=== PATIENT | male | born 1965 | race Caucasian/White ===

== ENCOUNTER 2024-09-10 15:01 | Inpatient (IN) | payer OTHER, SELFPAY ==
[2024-09-10] VITALS (49 sets, daily range): BP systolic 107–197; BP diastolic 69–161
--- NOTE | 2024-09-10 13:50 | ED.GENMED ---
History of Present Illness
<Miguel Ángel Moy PA-C - Last Filed: 09/10/24 18:55>
General
Chief Complaint: Substance Abuse
Source: patient
Time Seen by Provider: 09/10/24 13:35
History of Present Illness
History of Present Illness:
59-year-old male with unknown past medical history presenting to the ER from [facility] where he was brought today as an inmate, notified staff that he had taken approximately 1500 mg of methamphetamine around 9 AM, was
brought to the [facility] where patient continued to decline prompting the [facility] to call EMS who transported the patient to the ER. Patient received approximately 150 mL of normal saline. Fingerstick glucose was 138. They administered 2 L of
oxygen via nasal cannula for comfort although they did note patient was not hypoxic and maintaining his airway although was extremely agitated and having constant muscle twitching. They did state that initially patient was responding to his name
however not able to answer questions. Patient is unable to provide any history at the time of arrival to the ER here.
Past History
<Miguel Ángel Moy PA-C - Last Filed: 09/10/24 18:55>
Past History
ED Past Medical History: Other (unknown)
ED Past Surgical History: None
Review of Systems
<Miguel Ángel Moy PA-C - Last Filed: 09/10/24 18:55>
Review of Systems
Unable to obtain full review of systems at this time due to: due to acuity
Other source history: ambulance crew
Phy Exam
<Miguel Ángel Moy PA-C - Last Filed: 09/10/24 18:55>
Physical Exam
Physical Exam:
GENERAL: Obtunded but maintaining airway, minimally withdraws from sternal rub/pain response
EYE: Pupils significantly dilated to approximately 7 mm, sluggish
NECK: Supple
ENT: o/p clr, dry mucous membranes
CARDIAC: Regular rate and rhythm .
LUNGS: Clear breath sounds bilaterally, no acute respiratory distress, no wheezes/rales/rhonchi
ABDOMEN: Soft, without focal tenderness, no r/g, no cvat
NEUROLOGICAL: Approximate 5 beat clonus to the bilateral lower extremities, constant choreiform like jerking movements to bilateral upper and lower extremity
SKIN: Warm and dry, skin intact.
MUSCULOSKELETAL: No edema, well perfused.
PSYCH: unable to assess
Scores
<Miguel Ángel Moy PA-C - Last Filed: 09/10/24 18:55>
Heart Failure Risk
Heart Failure Risk Score: Not Applicable
Heart Score for Chest Pain Patients
STEMI patient?: Not applicable
Withdrawal Assessment of Alcohol
Withdrawal Assessment Completed?: Not applicable
Course
<Miguel Ángel Moy PA-C - Last Filed: 09/10/24 18:55>
Orders/Labs/Results
Orders:
Orders
09/10/24 13:34
Electrocardiogram (*1) Urgent
Reason for Study: Other
Other Reason for Exam: meth use
Etomidate [Amidate] 40 mg .ROUTE .STK-MED ONE
Rocuronium Winfield [Rocuronium] 100 mg .ROUTE .STK-MED ONE
09/10/24 13:35
EKG- Treatment ONCE
09/10/24 13:37
0.9% Sodium Chloride 1000 ml [Nss] 1,000 ml IV BOLUS
09/10/24 13:45
Lorazepam [Ativan] 2 mg IV NOW STA
09/10/24 13:48
PTT Urgent
Prothrombin Time Urgent
09/10/24 13:49
Acetaminophen Urgent
Alcohol Urgent
CPK [Creatine Phosphokinase] Urgent
Complete Blood Count/With Diff Urgent
Comprehensive Metabolic Panel Urgent
Salicylate Urgent
Triglycerides Urgent
Comment: ADDON
Venous Blood Gas Urgent
%Oxygen/Room Air: RA
09/10/24 14:03
Etomidate [Amidate 20 mg] 20 mg .ROUTE .STK-MED ONE
09/10/24 14:13
Propofol 1,000,000 Mcg/100 ml [Diprivan] 1,000,000 mcg in 100 ml .ROUTE .STK-MED
Portable Chest Xray [CR Chest Portable - 1 View] Urgent
Comment:
Reason For Exam: post intubation
Reason Study Needs to be Portable: Patient Unstable
09/10/24 14:14
Etomidate [Amidate 20 mg] 20 mg IV NOW STA
Fentanyl Citrate/Pf [Sublimaze] 50 mcg IV [id number] PRN
Fentanyl Citrate/Pf [Sublimaze] 65 mcg IV NOW STA
09/10/24 14:15
FentaNYL 1,000 MCG/100 ML [Sublimaze] 1,000 mcg in 100 ml IV PER PROTOCOL
Indication:: Deep Sedation
Begin Infusion:: Now
Goal:: RASS </= -3, BIS 40-60, ventilator synchrony
Maximum dose in mcg/hr:: 300
Initial Dose in mcg/hr:: 60
Titration Instructions:: Titrate Q30 min until ventilator synchrony, RASS or BIS goal is met.
Titration Instructions:: If RASS >/= -2 or BIS > 60 or ventilator dyssynchrony:
Titration Instructions:: administer bolus dose and increase infusion by 25 mcg/hr.
Titration Instructions:: Administer analgesia bolus dose(s) & titrate analgesia prior to
Titration Instructions:: adjusting sedation.
Over-sedation Instructions:: if BIS < 40 and pt is synchronous with ventilator, decrease infusion by
Over-sedation Instructions:: 25 mcg/hr every 2 hours until BIS = 40-60.
Over-sedation Instructions:: Do not wean infusion to off if patient is receiving a continuous NMBA or
Over-sedation Instructions:: has received a bolus dose of NMBA within the past 3 hours.
Notify provider:: immediately if pt exhibits signs/symptoms of chest wall rigidity,
Notify provider:: hemodynamic instability, or agitation/pain despite maximum dosing.
Additional Instructions:: Patient MUST be mechanically ventilated.
Propofol 1,000,000 Mcg/100 ml [Diprivan] 1,000,000 mcg in 100 ml IV PER PROTOCOL
Indication:: Deep Sedation
Begin Infusion:: Now
Goal:: RASS -3 to -5 or BIS < 60 or ventilator synchrony
Maximum dose in mcg/kg/min:: 50
Initial Dose in mcg/kg/min:: 20
Titration Instructions:: Titrate by 5-10 mcg/kg/min every 5 minutes until RASS -3 to -5 or
Titration Instructions:: BIS < 60 or ventilator synchrony is met.
Titration Instructions:: Administer analgesia bolus dose(s) & titrate analgesia prior to
Titration Instructions:: adjusting sedation.
Taper Instructions:: If RASS is at or below goal for 4 consecutive hours decrease infusion by
Taper Instructions:: 5-10 mcg/kg/min every 2 hours. Do not wean infusion to off if patient is
Taper Instructions:: receiving a continuous NMBA or has received bolus NMBA with the past 3 hrs
Over-sedation Instructions:: If BIS < 40 and synchronous with ventilator decrease infusion by
Over-sedation Instructions:: 5-10 mcg/kg/min every 2 hour until BIS = 40-60.
Notify provider:: immediately if patient exhibits signs/symptoms of propofol-related
Notify provider:: infusion syndrome.
Additional Instructions:: Patient MUST be mechanically ventilated and MUST receive analgesia.
09/10/24 14:18
FentaNYL 1,000 MCG/100 ML [Sublimaze] 1,000 mcg in 100 ml .ROUTE .STK-MED
09/10/24 14:35
Admit/Transfer Patient As Directed
Co-Sign Provider:
Level of Care: Inpatient admission
Assign to:: ICU
Physician / Group: Serafin Wagner
Diagnosis: methamphetamine overdose
Reason for Hospitalization: methamphetamine overdose
Expected length of stay greater than two midnights?: Yes
ELOS- Estimated Length of Stay in days: 3
I certify the patient meets the requirements for IP care: Yes
PRN Pain Medication Management As Directed
May give lesser potent ordered pain med per pt: Yes
preference::
Protocol:: Medication orders for pain may be administered in a
manner that supports deferring to patient preference
when the pt is:
- Requesting an ordered lesser potent pain medication.
Least to most potent pain medications are defined
as: acetaminophen < NSAID < tramadol < opioids
(morphine, oxycodone, hydromorphone).
- Requesting a lesser dose of the same medication IF
ORDERED.
- Requesting a less intrusive route of administration
if both routes are prescribed by the provider (PO <
IV).
09/10/24 14:39
Fentanyl, Urine Urgent
Urinalysis Reflex To Culture Urgent
Date Specimen was Collected: 09/10/24
Time Specimen was Collected: 14:34
Urine Drug Abuse Screen Urgent
Date Specimen was Collected: 09/10/24
Time Specimen was Collected: 14:34
Urine Microscopic Reflex Cult Urgent
09/10/24 Dinner
NPO
Allow oral meds: No
Allow clear liquids: No
09/10/24 16:29
Heparin 5,000 units SC Q8
09/10/24 16:29
Electrocardiogram (*1) Urgent
Reason for Study: Other
Other Reason for Exam: methamphetamine overdose
Pet Technologist Consult Urgent
Consulting Provider: Katelynn Mariscal
Was physician already notified: Yes
Reason for consult: ICU team notified by ED staff
MRSA Screen Routine
JESSIKA Source: Nose
Specimen Description:
Tong Catheter [Catheter- Indwelling] As Directed
Reason for insertion: I&O's Critical Care
Assess insertion reason daily.Remove if no longer applicable: Yes
Weight As Directed
Frequency: Daily
Pulse Ox/cont/shift [RESP] Urgent
Quantity: 1
Ventilator Initial Settings [RESP] Routine
DX Deep Vein Thrombosis Video Routine
09/10/24 17:15
Dexmedetomidine 400 Mcg/100 ml [Precedex] 400 mcg in 100 ml IV PER PROTOCOL
Indication:: Light Sedation
Goal:: RASS 0 to -2
Maximum dose in mcg/kg/hr:: 1.5
Initial dose in mcg/kg/hr:: 0.1
Titration Instructions:: Titrate by 0.1-0.2 mcg/kg/hr every 30 minutes until RASS 0 to -2 achieved.
Titration Instructions:: start and titrate for increased agitation
Taper Instructions:: If RASS is at or below goal for 4 consecutive hours, decrease infusion by
Taper Instructions:: 0.2 mcg/kg/hr every 2 hours to off.
Over-sedation Instructions:: If CPOT 0-2 (at goal) AND RASS -3 to -5 (below goal) decrease sedative by
Over-sedation Instructions:: 50% first. If pain score remains at goal and RASS remains below goal in
Over-sedation Instructions:: 1 hour, decrease opioid infusion by 50%.
Notify provider:: for sustained HR < 50 bpm or SBP < 90 mmHg
09/11/24 08:00
Polyethylene Glycol Powder [Miralax] 17 grams TUBE DAILY
09/13/24 06:00
Triglycerides Q3D
Comment: every 72 hours while patient is on propofol
09/16/24 06:00
Triglycerides Q3D
Comment: every 72 hours while patient is on propofol
09/19/24 06:00
Triglycerides Q3D
Comment: every 72 hours while patient is on propofol
Abnormal Lab Results
09/10/24 09/10/24
13:49 14:39
RBC 4.53 L 10^6/uL
(4.70-6.10)
MCHC 32.5 L g/dL
(33.0-37.0)
Absolute Neuts (auto) 8.5 H 10^3/uL
(1.4-6.5)
Absolute Lymphs (auto) 1.1 L 10^3/uL
(1.2-3.4)
Neutrophils % 83.4 H %
(42.2-75.2)
Lymphocytes % 10.3 L %
(20.5-51.1)
VBG pCO2 49 H mmHg
(35-48)
VBG pO2 83 H mmHg
(30-50)
VBG HCO3 27.7 H mmol/L
(22-27)
BUN 21 H mg/dl
(9-20)
Glucose 156 H mg/dl
(70-99)
Ur Occult Blood Reflex 1+ A
(Negative)
Urine RBC 7-10 A /HPF
(0-2)
Urine Albumin (Reflex) 1+ A
(Neg - Trace)
Salicylates < 1.0 L mg/dl
(2.0-20.0)
Ur Buprenorphine Positive H
(Negative)
Urine Methadone Screen Positive H
(Negative)
Urine Fentanyl Screen Positive H
(Negative)
Acetaminophen < 10 L ug/ml
(10-30)
Ur Amphetamines Screen Positive H
(Negative)
U Methamphetamines Scrn Positive H
(Negative)
09/10/24 13:49
09/10/24 13:49
Vital Signs
Initial and Last Documented VS:
Initial Vital Signs
Pulse Resp BP Pulse Ox
83 16 142/109 95
09/10/24 13:37 09/10/24 13:37 09/10/24 13:37 09/10/24 13:37
Last Documented Vital Signs
Temp Pulse Resp BP Pulse Ox
96.7 F L 90 16 136/87 100
09/10/24 17:08 09/10/24 18:30 09/10/24 18:30 09/10/24 18:15 09/10/24 18:00
<Dave Velarde Chirstina, DO - Last Filed: 09/10/24 14:31>
Orders/Labs/Results
Orders:
Orders
09/10/24 13:34
Electrocardiogram (*1) Urgent
Reason for Study: Other
Other Reason for Exam: meth use
Etomidate [Amidate] 40 mg .ROUTE .STK-MED ONE
Rocuronium Winfield [Rocuronium] 100 mg .ROUTE .STK-MED ONE
09/10/24 13:35
EKG- Treatment ONCE
09/10/24 13:37
0.9% Sodium Chloride 1000 ml [Nss] 1,000 ml IV BOLUS
09/10/24 13:45
Lorazepam [Ativan] 2 mg IV NOW STA
09/10/24 13:48
PTT Urgent
Prothrombin Time Urgent
09/10/24 13:49
Acetaminophen Urgent
Alcohol Urgent
CPK [Creatine Phosphokinase] Urgent
Complete Blood Count/With Diff Urgent
Comprehensive Metabolic Panel Urgent
Salicylate Urgent
Triglycerides Urgent
Comment: ADDON
Venous Blood Gas Urgent
%Oxygen/Room Air: RA
09/10/24 14:03
Etomidate [Amidate 20 mg] 20 mg .ROUTE .STK-MED ONE
09/10/24 14:13
Propofol 1,000,000 Mcg/100 ml [Diprivan] 1,000,000 mcg in 100 ml .ROUTE .STK-MED
Portable Chest Xray [CR Chest Portable - 1 View] Urgent
Comment:
Reason For Exam: post intubation
Reason Study Needs to be Portable: Patient Unstable
09/10/24 14:14
Etomidate [Amidate 20 mg] 20 mg IV NOW STA
Fentanyl Citrate/Pf [Sublimaze] 50 mcg IV [id number] PRN
Fentanyl Citrate/Pf [Sublimaze] 65 mcg IV NOW STA
09/10/24 14:15
FentaNYL 1,000 MCG/100 ML [Sublimaze] 1,000 mcg in 100 ml IV PER PROTOCOL
Indication:: Deep Sedation
Begin Infusion:: Now
Goal:: RASS </= -3, BIS 40-60, ventilator synchrony
Maximum dose in mcg/hr:: 300
Initial Dose in mcg/hr:: 60
Titration Instructions:: Titrate Q30 min until ventilator synchrony, RASS or BIS goal is met.
Titration Instructions:: If RASS >/= -2 or BIS > 60 or ventilator dyssynchrony:
Titration Instructions:: administer bolus dose and increase infusion by 25 mcg/hr.
Titration Instructions:: Administer analgesia bolus dose(s) & titrate analgesia prior to
Titration Instructions:: adjusting sedation.
Over-sedation Instructions:: if BIS < 40 and pt is synchronous with ventilator, decrease infusion by
Over-sedation Instructions:: 25 mcg/hr every 2 hours until BIS = 40-60.
Over-sedation Instructions:: Do not wean infusion to off if patient is receiving a continuous NMBA or
Over-sedation Instructions:: has received a bolus dose of NMBA within the past 3 hours.
Notify provider:: immediately if pt exhibits signs/symptoms of chest wall rigidity,
Notify provider:: hemodynamic instability, or agitation/pain despite maximum dosing.
Additional Instructions:: Patient MUST be mechanically ventilated.
Propofol 1,000,000 Mcg/100 ml [Diprivan] 1,000,000 mcg in 100 ml IV PER PROTOCOL
Indication:: Deep Sedation
Begin Infusion:: Now
Goal:: RASS -3 to -5 or BIS < 60 or ventilator synchrony
Maximum dose in mcg/kg/min:: 50
Initial Dose in mcg/kg/min:: 20
Titration Instructions:: Titrate by 5-10 mcg/kg/min every 5 minutes until RASS -3 to -5 or
Titration Instructions:: BIS < 60 or ventilator synchrony is met.
Titration Instructions:: Administer analgesia bolus dose(s) & titrate analgesia prior to
Titration Instructions:: adjusting sedation.
Taper Instructions:: If RASS is at or below goal for 4 consecutive hours decrease infusion by
Taper Instructions:: 5-10 mcg/kg/min every 2 hours. Do not wean infusion to off if patient is
Taper Instructions:: receiving a continuous NMBA or has received bolus NMBA with the past 3 hrs
Over-sedation Instructions:: If BIS < 40 and synchronous with ventilator decrease infusion by
Over-sedation Instructions:: 5-10 mcg/kg/min every 2 hour until BIS = 40-60.
Notify provider:: immediately if patient exhibits signs/symptoms of propofol-related
Notify provider:: infusion syndrome.
Additional Instructions:: Patient MUST be mechanically ventilated and MUST receive analgesia.
09/10/24 14:18
FentaNYL 1,000 MCG/100 ML [Sublimaze] 1,000 mcg in 100 ml .ROUTE .STK-MED
09/10/24 14:35
Admit/Transfer Patient As Directed
Co-Sign Provider:
Level of Care: Inpatient admission
Assign to:: ICU
Physician / Group: Serafin Wagner
Diagnosis: methamphetamine overdose
Reason for Hospitalization: methamphetamine overdose
Expected length of stay greater than two midnights?: Yes
ELOS- Estimated Length of Stay in days: 3
I certify the patient meets the requirements for IP care: Yes
PRN Pain Medication Management As Directed
May give lesser potent ordered pain med per pt: Yes
preference::
Protocol:: Medication orders for pain may be administered in a
manner that supports deferring to patient preference
when the pt is:
- Requesting an ordered lesser potent pain medication.
Least to most potent pain medications are defined
as: acetaminophen < NSAID < tramadol < opioids
(morphine, oxycodone, hydromorphone).
- Requesting a lesser dose of the same medication IF
ORDERED.
- Requesting a less intrusive route of administration
if both routes are prescribed by the provider (PO <
IV).
09/10/24 14:39
Fentanyl, Urine Urgent
Urinalysis Reflex To Culture Urgent
Date Specimen was Collected: 09/10/24
Time Specimen was Collected: 14:34
Urine Drug Abuse Screen Urgent
Date Specimen was Collected: 09/10/24
Time Specimen was Collected: 14:34
Urine Microscopic Reflex Cult Urgent
09/10/24 Dinner
NPO
Allow oral meds: No
Allow clear liquids: No
09/10/24 16:29
Heparin 5,000 units SC Q8
09/10/24 16:29
Electrocardiogram (*1) Urgent
Reason for Study: Other
Other Reason for Exam: methamphetamine overdose
Pet Technologist Consult Urgent
Consulting Provider: Katelynn Mariscal
Was physician already notified: Yes
Reason for consult: ICU team notified by ED staff
MRSA Screen Routine
JESSIKA Source: Nose
Specimen Description:
Tong Catheter [Catheter- Indwelling] As Directed
Reason for insertion: I&O's Critical Care
Assess insertion reason daily.Remove if no longer applicable: Yes
Weight As Directed
Frequency: Daily
Pulse Ox/cont/shift [RESP] Urgent
Quantity: 1
Ventilator Initial Settings [RESP] Routine
DX Deep Vein Thrombosis Video Routine
09/10/24 17:15
Dexmedetomidine 400 Mcg/100 ml [Precedex] 400 mcg in 100 ml IV PER PROTOCOL
Indication:: Light Sedation
Goal:: RASS 0 to -2
Maximum dose in mcg/kg/hr:: 1.5
Initial dose in mcg/kg/hr:: 0.1
Titration Instructions:: Titrate by 0.1-0.2 mcg/kg/hr every 30 minutes until RASS 0 to -2 achieved.
Titration Instructions:: start and titrate for increased agitation
Taper Instructions:: If RASS is at or below goal for 4 consecutive hours, decrease infusion by
Taper Instructions:: 0.2 mcg/kg/hr every 2 hours to off.
Over-sedation Instructions:: If CPOT 0-2 (at goal) AND RASS -3 to -5 (below goal) decrease sedative by
Over-sedation Instructions:: 50% first. If pain score remains at goal and RASS remains below goal in
Over-sedation Instructions:: 1 hour, decrease opioid infusion by 50%.
Notify provider:: for sustained HR < 50 bpm or SBP < 90 mmHg
09/11/24 08:00
Polyethylene Glycol Powder [Miralax] 17 grams TUBE DAILY
09/13/24 06:00
Triglycerides Q3D
Comment: every 72 hours while patient is on propofol
09/16/24 06:00
Triglycerides Q3D
Comment: every 72 hours while patient is on propofol
09/19/24 06:00
Triglycerides Q3D
Comment: every 72 hours while patient is on propofol
Abnormal Lab Results
09/10/24 09/10/24
13:49 14:39
RBC 4.53 L 10^6/uL
(4.70-6.10)
MCHC 32.5 L g/dL
(33.0-37.0)
Absolute Neuts (auto) 8.5 H 10^3/uL
(1.4-6.5)
Absolute Lymphs (auto) 1.1 L 10^3/uL
(1.2-3.4)
Neutrophils % 83.4 H %
(42.2-75.2)
Lymphocytes % 10.3 L %
(20.5-51.1)
VBG pCO2 49 H mmHg
(35-48)
VBG pO2 83 H mmHg
(30-50)
VBG HCO3 27.7 H mmol/L
(22-27)
BUN 21 H mg/dl
(9-20)
Glucose 156 H mg/dl
(70-99)
Ur Occult Blood Reflex 1+ A
(Negative)
Urine RBC 7-10 A /HPF
(0-2)
Urine Albumin (Reflex) 1+ A
(Neg - Trace)
Salicylates < 1.0 L mg/dl
(2.0-20.0)
Ur Buprenorphine Positive H
(Negative)
Urine Methadone Screen Positive H
(Negative)
Urine Fentanyl Screen Positive H
(Negative)
Acetaminophen < 10 L ug/ml
(10-30)
Ur Amphetamines Screen Positive H
(Negative)
U Methamphetamines Scrn Positive H
(Negative)
09/10/24 13:49
09/10/24 13:49
Vital Signs
Initial and Last Documented VS:
Initial Vital Signs
Pulse Resp BP Pulse Ox
83 16 142/109 95
09/10/24 13:37 09/10/24 13:37 09/10/24 13:37 09/10/24 13:37
Last Documented Vital Signs
Temp Pulse Resp BP Pulse Ox
96.7 F L 90 16 136/87 100
09/10/24 17:08 09/10/24 18:30 09/10/24 18:30 09/10/24 18:15 09/10/24 18:00
Procedures
<Miguel Ángel Moy PA-C - Last Filed: 09/10/24 18:55>
Intubations
Procedure completed by: Chinmay/Christina
Method of Intubation: glidescope
Tube size (cm): 8.0
Placement confirmed by: CXR, capnography and direct visualization
Breath sounds after intubation: equal
Intubation complications: no complications
<Miguel Ángel Moy PA-C - Last Filed: 09/10/24 18:55>
MDM/Problems Addressed
Differential Diagnosis Includes:
Methamphetamine overdose, potential for other substance overdose, electrolyte derangement, less concern for acute infectious etiology
MDM/Problems Addressed:
59-year-old male presenting to the ER from [facility] for reported overdose where patient took approximately 1500 mg of methamphetamine approximately 4-1/2 hours prior to arrival. Patient is significantly agitated, minimally
responsive, appears to have significant neurologic findings of choreiform like movements and clonus. Toxicology workup initiated. Call placed to [facility] toxicology for further medication recommendation. 2 mg of Ativan ordered for
symptomatic relief. Will continue with normal saline bolus. Closely monitoring patient for any signs of airway compromise and will have low threshold to intubate if need be. Planning for admission
Chronic conditions affecting care: Psychiatric illness (Substance use)
<Miguel Ángel Moy PA-C - Last Filed: 09/10/24 18:55>
*Radiology
Radiology exam reviewed: preliminary read by ED provider (Proper placement of the ET tube)
*Pulse Oximetry
Patient hypoxic: no
*EKG
Comparison EKG: no comparison EKG present
Heart Rate: 83
Rate: normal
Rhythm: sinus
Thorpe: normal axis
Ischemia: no ischemia
*Sorter Operator Interpretation
Rate: normal
Rhythm: sinus
*Critical Care Note
Total Time (30-74mins, 75-104mins- exclusive of procedures): 35
comment:
Critical care statement: A total of 45 minutes of critical care time was provided for this patient. This includes management of unstable vital signs, evaluation of the patient at bedside, reviewing the patient's pertinent medical records, discussion
with consultants, review of old EKGs and review of pertinent medical records. This time with separate from time utilized to perform the aforementioned documented procedures
<Dave Vasquez DO - Last Filed: 09/10/24 14:31>
*Critical Care Note
Total Time (30-74mins, 75-104mins- exclusive of procedures): 40min
comment:
I evaluated the patient at bedside. The patient is critically ill in appearance. He is hypertensive. He is minimally responsive. The patient was intubated (see note elsewhere). We communicated emergently with color worker at [facility] and I
also discussed with oil expeller here at [place]. The patient required multiple reassessments.
<Miguel Ángel Moy PA-C - Last Filed: 09/10/24 18:55>
Comment
Comment:
2 PM-patient started to have increased agitation, hypoxia and grunting. Patient not maintaining airway. Decision made to intubate patient to protect airway.
Patient Management
Social determinants of health affecting care: Substance abuse
Discussion with other providers: Hospitalist and Cover Seamer
Escalation/DeEscalation of care consider admission/obs:
Case discussed with [facility] color worker who agrees with workup plan and treatment. No further recommendations at this time other than if symptoms seem to worsen despite current medications Precedex could be of potential benefit. Hospitalist
team notified. Dr. Vasquez had spoken with oil expeller team about the case already.
ED Attending Note
<Miguel Ángel Moy PA-C - Last Filed: 09/10/24 18:55>
-
Portions of this chart may have been created with voice recognition software.� Occasional wrong word or��sound alike� substitutions may have occurred due to the inherent limitations of voice recognition software.
<Dave Vasquez DO - Last Filed: 09/10/24 14:31>
ED Attending Note
Patient seen and examined by attending physician: Yes
I performed the substantive portion of visit, reviewed & personally made and approve the management plan that is documented in note by myself or DEBO.: Yes
ED Attending Note:
I evaluated the patient at bedside. The patient had choreoathetoid movements intermittently, significant clonus, and was minimally responsive. He was given 2 mg of IV Ativan given the abnormal neurologic presentation. He did have trouble
protecting his airway and decision was made to intubate him emergently. This was done without difficulty. I also communicated with Dr. Mariscal who recommends propofol.
Discharge Plan
Departure
Patient Disposition: Admit
Date of Disposition: 09/10/24
Time of Disposition: 14:21
Presentation/result/management discussed w/ accepting MD/DO: Hospitalist
Discharge Problem:
Overdose of methamphetamine
Interventions
Interventions:
*Risk Screen - Suicide Last Done: 09/10/24 13:42
*General Assessment Last Done: 09/10/24 13:42
*Neglect/Abuse Screening Last Done: 09/10/24 13:42
ED- Fall Risk Assessment Last Done: 09/10/24 15:36
*ED COVID-19 Vaccine History Last Done: 09/10/24 13:42
*Nursing Disposition Last Done: 09/10/24 15:36
ED-Psychological Assessment Last Done: 09/10/24 13:42
Discharge Date and Time
Discharge Date/Time: 09/10/24 16:39
[2024-09-10] MEDS: NSS 1000 IV (13:51)
[2024-09-10] MEDS: ATIVAN 2 MG IV (13:51)
[2024-09-10 14:07] LABS: Venous Blood Gas B.E. 1.4 mmol/L (-4 to +4); Venous Blood Gas HCO3 27.7 mmol/L (22-27); Venous Blood Gas O2 Sat % 98.6 %; Venous Blood Gas pCO2 49 mmHg (35-48); Venous Blood Gas pH 7.36 (7.32-7.43); Venous Blood Gas pO2 83 mmHg (30-50)
[2024-09-10 14:08] LABS: % Basophils 0.7 % (0-2); % Eosinophils 1.6 % (0-6); % Immature Granulocytes 0.4 % (0-0.5); % Lymphocytes 10.3 % (20.5-51.1); % Monocytes 3.6 % (1.7-9.3); % Neutrophils 83.4 % (42.2-75.2); Absolute Basophils 0.1 10^3/uL (0-0.2); Absolute Eosinophils 0.2 10^3/uL (0-0.7); Absolute Lymphocytes 1.1 10^3/uL (1.2-3.4); Absolute Monocytes 0.4 10^3/uL (0.1-0.6); Absolute Neutrophils 8.5 10^3/uL (1.4-6.5); Hematocrit 42.5 % (39.0-52.0); Hemoglobin 13.8 g/dL (13.0-18.0); Mean Corp Hgb Conc. 32.5 g/dL (33.0-37.0); Mean Corpuscular Hgb 30.5 pg (27.0-31.0); Mean Corpuscular Volume 93.8 fL (80.0-94.0); Mean Platelet Volume 9.3 fL (7.4-10.4); Nucleated Red Blood Cells % 0 % (-); Platelet Count 283 10^3/uL (130-400); Red Blood Cell Count 4.53 10^6/uL (4.70-6.10); Red Cell Dist. Width 12.6 % (11.5-14.5); White Blood Cell Count 10.2 10^3/uL (4.8-10.8)
[2024-09-10 14:09] LABS: Venous Blood Gas O2 Therapy RA
[2024-09-10 14:14] LABS: INR 0.96; PT 13.3 Sec (11.4-14.6)
[2024-09-10 14:15] LABS: APTT 23.9 Sec (23.4-35.0)
[2024-09-10 14:21] LABS: ALT (SGPT) 25 U/L (0-50); AST (SGOT) 21 U/L (17-59); Acetaminophen < 10 ug/ml (10-30); Albumin 4.2 g/dl (3.5-5.0); Alkaline Phosphatase 100 U/L (38-126); Blood Urea Nitrogen 21 mg/dl (9-20); Calcium 8.7 mg/dl (8.4-10.2); Carbon Dioxide 27 mmol/L (22-30); Chloride 107 mmol/L (98-107); Creatine Phosphokinase 98 U/L (55-170); Glucose 156 mg/dl (70-99); Potassium 4.2 mmol/L (3.5-5.1); Salicylate < 1.0 mg/dl (2.0-20.0); Sodium 143 mmol/L (135-145); Total Bilirubin 0.3 mg/dl (0.2-1.3); Total Protein 7.1 g/dl (6.3-8.2); eGFR > 60.00
[2024-09-10 14:23] LABS: Alcohol None Detected
[2024-09-10] MEDS: AMIDATE 20 MG IV (14:25)
[2024-09-10] MEDS: DIPRIVAN 100 IV (14:26)
[2024-09-10] MEDS: SUBLIMAZE 65 MCG IV (14:27)
[2024-09-10] MEDS: SUBLIMAZE 100 IV (14:31)
--- NOTE | 2024-09-10 14:36 | HPS.HSE ---
Family Physician
-
Family Physician: Facility [employer] [facility]
Chief Complaint
-
methamphetamine OD
History of Present Illness
HPI
59M inmate from [facility] seen at ER
- [facility]
- he took approximately 1500 mg of methamphetamine around 9 AM
- he was taken to the [facility] where patient continued to decline prompting the [facility] to call EMS who transported the patient to the ER.
- Patient received approximately 150 mL of normal saline.
- Fingerstick glucose was 138.
Per EMS:
- They administered 2 L of oxygen via nasal cannula for comfort although they did note patient was not hypoxic and maintaining his airway although was extremely agitated and having constant muscle twitching. They did state that initially patient
was responding to his name however not able to answer questions.
Per correction officers:
Under correction custody for day 1
Patient was picked up today by police for agitation
Over the the time escalading agitation
Medical History
Past Medical History
Past Medical History: Reports Other (unknown )
Past Surgical History: Reports Other (unknown )
Social History
Unable to obtain full social history at this time due to: Patient Intubation
Living: Senior Living
Family History
Family History: Unable to Obtain
Allergies / Home Medications
Allergies reflects when Allergies were last updated in [facility].
Home Medications with original date entered in [facility]
Allergy/Medication List:
Allergies
Allergy/AdvReac Type Severity Reaction Status Date / Time
No Allergy Information Allergy Unverified 09/10/24 13:36
Available
Review of Systems
-
Unable to obtain full review of systems at this time due to: Patient Intubation
Physical Exam
Vital Signs
Vital Signs
Pulse Resp BP Pulse Ox
83 23 142/109 95
09/10/24 13:45 09/10/24 13:45 09/10/24 13:37 09/10/24 13:45
Physical Exam
General: Intubated and Other (Obtunded but maintaining airway, minimally withdraws from sternal rub/pain response)
HEENT: PERRLA (sluggish pupils significantly dilated to approximately 7 mm, dry OM)
Cardiac: S1/S2 and Regular Rhythm
Breast: Deferred by me
GI: Soft, Non Tender and Non Distended
Genito-urinary: Deferred by me
Musculoskeletal: No Edema
Skin: Warm and Dry; No Rash
Neuro: Sedated
Laboratory Results
-
09/10/24 13:49
09/10/24 13:49
Laboratory Results
PT 13.3 Sec (11.4-14.6) 09/10/24 13:48
INR 0.96 09/10/24 13:48
APTT 23.9 Sec (23.4-35.0) 09/10/24 13:48
Total Bilirubin 0.3 mg/dl (0.2-1.3) 09/10/24 13:49
AST 21 U/L (17-59) 09/10/24 13:49
ALT 25 U/L (0-50) 09/10/24 13:49
Alkaline Phosphatase 100 U/L (38-126) 09/10/24 13:49
Data Reviewed
-
Lab Data: Labs Reviewed by me
Impression/Plan
-
Reviewed VS: unremarkable
PE
Intubated
Gen: Obtunded but maintaining airway, minimally withdraws from sternal rub/pain response
HEENT: sluggish pupils significantly dilated to approximately 7 mm, dry OM
Neck: supple
Lungs:
Cor: symmetric AE
Abdomen: benign exam
RESIDENTIAL SALES ASSOCIATE: 5 beat clonus to the bilateral lower extremities, constant choreiform like jerking movements to bilateral upper and lower extremity
MS:no edema
Derm
Psych:limitd due to intubated patient
Data
Nl CBC
Unremarkable CMP
VB.36/ pCO2 49/ pO283
Undetectable Salicylate , Acetaminophen and ETOH
NO PRIOR hospitalist admission:
ASSESSMENT & PLAN
Acute VDRF due to agitation and obtundation
Currently sedated
Methamphetamine overdose
Undetectable Salicylate , Acetaminophen and ETOH
- cont. Vent
- supportive care with IVF, NGT
- Precedex gtt as needed
- Per [place] tox: no further recs for [facility] other than precedex as needed if starts to have any further withdrawal symptoms
DVT Px: SQH
Full code
ICU
Total Critical Care Time__40___ minutes.
I was immediately available to the patient and staff. I personally examined, reviewed labs, diagnostic images/reports, interpretations, treatment plans, discussed patient care with other providers and family or caregivers (if patient is unable to
make decisions), entered orders as appropriate and documented the medical record.
--- NOTE | 2024-09-10 14:42 | EDRN ---
Addendum entered by Rehana Clark RN 09/10/24 14:45:
16 Fr NGT in right nare to suction
Original Note:
1400: pt became hypoxic, at bedside
1410: Pt bagged, RT at bedside; pt administered Etomidate 20 + Roccuronium 60
1412: intubated with 8.0 tube, 24 at lip, + color change.
Pt's rectal temp 96, warm blankets applied, Tong cath inserted, urine sent to lab.
Propofol and Fentanyl drips ongoing.
--- NOTE | 2024-09-10 14:59 | PHANOTE ---
med rec note- patient coming from [facility] as a new inmate, called over to confirm medication, [facility] did not start him on anything been new to snf, patient has no ecw, no pharmacy records pdmp was last used for patient january of 2024. nurse at [facility] did
mention that the patient stated he does not take anything before patient got worst
[2024-09-10 15:10] LABS: Urine Albumin 1+ (Neg - Trace); Urine Bilirubin Negative (Negative); Urine Character Clear (Clear); Urine Color Yellow; Urine Glucose Negative (Negative); Urine Ketone Negative (Negative); Urine Leukocyte Negative (Negative); Urine Nitrite Negative (Negative); Urine Occult Blood 1+ (Negative); Urine Specific Gravity 1.025 (<1.030); Urine Urobilinogen Negative (Neg - 1+)
[2024-09-10 15:20] LABS: Amphetamines Positive (Negative); Barbiturates Negative (Negative); Benzodiazepines Negative (Negative); Buprenorphine Positive (Negative); Cocaine Negative (Negative); Marijuana Negative (Negative); Methadone Positive (Negative); Methamphetamines Positive (Negative); Opiates Negative (Negative); Phencyclidine Negative (Negative); Tricyclic Antidepressants Negative (Negative)
[2024-09-10 15:49] LABS: Urine Squamous Cell 0-2 /LPF (Few); Urine White Cell 0-2 /HPF (0-5)
[2024-09-10 15:55] LABS: Fentanyl, Urine Positive (Negative)
--- NOTE | 2024-09-10 17:09 | CON.INTV ---
Consultation
Consultation Request
Date/Time Consultation Requested: 09/10/24
Date/Time Consultation Performed: 09/10/24
Performing Provider: Loida
Reason for Consultation: ICU
Medical History
-
History of Present Illness:
Patient is a 59-year-old male with previous history of drug use presenting from [facility] for unresponsiveness. He reportedly had taken 1500 mg of methamphetamine around 9 AM day of admission. He was taken to the [facility]
where patient continued to decline prompting EMS transport to the ER. Due to mental status changes and extreme agitation, patient was intubated for airway protection. He remains unresponsive. UDS completed following fentanyl delivery in the ER,
but positive for buprenorphine, methadone, fentanyl, amphetamines, methamphetamines. Admitted to ICU for further management.
Past Medical History
Past Medical History: Other
Family History
Family History: Unable to Obtain
Allergies / Home Medications
Allergies
Allergy/AdvReac Type Severity Reaction Status Date / Time
No Allergy Information Allergy Unverified 09/10/24 13:36
Available
Home Medications
�Medication �Instructions �Recorded �Confirmed �Last Taken �Type
No Meds [No Current Medications] 09/10/24 09/10/24 Unknown History
Review of Systems
-
Unable to Obtain full review of systems at this time due to: Patient Intubation
Vitals / Labs / Diagnostic Testing
Vital Signs
Temp Pulse Resp BP Pulse Ox
96.7 F L 80 14 151/95 99
09/10/24 17:08 09/10/24 16:10 09/10/24 16:10 09/10/24 16:10 09/10/24 17:04
Lab Data
09/10/24 13:49
09/10/24 13:49
Laboratory Results
09/10/24
13:48
PT 13.3
INR 0.96
APTT 23.9
Diagnostic Testing:
Physical Exam
-
HEENT: Normocephalic, Anicteric and Moist Mucous Membranes
Cardiovascular: S1/S2 and Regular Rhythm
Respiratory: Clear and Non-Labored Respirations
GI: Soft, Distended and Non Tender
Neurology: Other (unresponsive, periodic twitching noted)
Skin: Warm, Dry and Good Color
General: Comfortable and Other (NAD)
Assessment
-
Patient is a 59-year-old male with previous history of drug use presenting from [facility] for unresponsiveness. He reportedly had taken 1500 mg of methamphetamine around 9 AM day of admission. He was taken to the [facility]
where patient continued to decline prompting EMS transport to the ER. Due to mental status changes and extreme agitation, patient was intubated for airway protection. He remains unresponsive. UDS completed following fentanyl delivery in the ER,
but positive for buprenorphine, methadone, fentanyl, amphetamines, methamphetamines. Admitted to ICU for further management.
Unresponsiveness s/p intubation for airway protection
Methamphetamine overdose suspected
Myoclonic jerking
Hyperglycemia
Hypertensive urgency
History of drug use
Incarcerated status
Plan
Currently unresponsive, with periodic twitching
Will obtain head CT
Stop sedation and observe off
If not improving, may consider neurologic consultation
Pain/sedation: Ativan as needed, Precedex if needed
RASS goals: 0
Hemodynamically stable, not requiring pressors.
Cardiac history reviewed--none
No prior echo for review
Blood pressure is noted to be elevated, will add hydralazine IV as needed
Monitor on telemetry
Intubated for airway protection
Prior history of lung disease: none
Supplemental O2 as indicated to maintain sats > 89%
CXR/CT reviewed indicating no acute findings
Will SBT pending mental status
NPO, resume diet when able
NGT to suction, output suggesting possible ileus, may consider abd imaging
Painter Helper recommendations
Aspiration precautions, HOB > 30 degrees
Speech therapy eval can be considered if at elevated risk
GI prophylaxis if indicated for mechanical ventilation >48 hours, prior history of GERD, stress ulcer formation in the critically ill
Creat at baseline, no history of renal disease
Void trials
Follow urine output, critical I/Os
No signs/symptoms suspicious for infectious etiology at this time
Observe off antibiotics for now
Follow fever trend, WBC count
CBC stable, no signs of bleeding or coagulopathy.
DVT prophylaxis as assessed based on risk, including mechanical SCDs
Can transfuse if indicated for Hb <7, plt < 10
No prior h/o diabetes or thyroid disease
Monitor accuchecks PRN/SS coverage if needed
We will follow
Diagnostic Data
Chest X-Ray: 09/10/24- No acute disease of the chest. Lines and tubes as described above.
CT Scan: HCT pending
Echo:
PFT's:
Reports and relevant images were personally reviewed.
Critical Care time 61 mins -- The patient is admitted for acute critical illness for the treatment of vital organ failure and/or prevention of further life-threatening conditions. Total care includes time spent in review of history, physical exam,
medications, hemodynamic/ventilator parameters, laboratory data, imaging and discussion with house staff, pharmacy, respiratory therapy, management trainee program stores, and nursing.
[2024-09-10] MEDS: HEPARIN 5000 UNITS SC ×2 (17:31→23:16)
[2024-09-10] MEDS: ATIVAN 1 MG IV ×2 (17:32→21:27)
[2024-09-10] MEDS: APRESOLINE 10 MG IV (18:05)
[2024-09-10] MEDS: DILAUDID 0.5 MG IV ×4 (18:13→23:58)
[2024-09-10 18:44] LABS: Triglycerides 65 mg/dl (10-149)
--- NOTE | 2024-09-10 18:45 | PTCARENOTE ---
PT admitted to ICU bed 3365 from ED. Pt unresponsive. RASS -4 and twitching. Propofol and Fentanyl d/c'd. Twitching increased. Pt began to pull against restraints nut not opening eyes or following commands. PRN Ativan given then PRN Dilaudid
and pt taken for CT head.
Sinus rhythm. PRN Hydralazine given for HTN.
NGT placed with 100ml brown liquid output immediately when placed to suction.
Tong draining clear yellow urine.
guards at bedside.
--- NOTE | 2024-09-10 19:15 | PTCARENOTE ---
Addendum entered by Aurea Hooker RN 09/10/24 21:48:
2 officers present at bedside for 1:1. Patient is a prisoner.
Original Note:
Patient received lying agitated and restless in bed with eyes closed, intubated on ventilator and without sedation. Patient has gross motor jerking/twitching movements that do not resemble seizure activity. He has bilateral soft wrist restraints,
checked and retied. Patient is pulling at restraints and reaching for ETT. Restraints checked every 2 hours and retied prn. Left ankle with handcuff restraint, ABD pads placed between cuff and skin. Patient does not open his eyes to command, he does
not follow commands. Precedex gtt ordered and started. Prn Dilaudid and Ativan prn sedation, agitation and restlessness, see MAR. #[id number], 24 cm at the lip in the center. Oral care rendered, every 4 hours and as needed. PRVC 12/TV 500/FiO2 40%/PEEP
+5. Patient is coughing but tolerating the vent. BBS with fine scattered crackles that improve with suctioning. S1S2 distant. [id number] low 100s on CM. BP stable. Low grade temp rectally at 99F. Abdomen soft with hypoactive bowel sounds. Pollard sump
NGT via right nare to LCS. Flushed with 30cc every 4 hours. Tena secretions via NGT. Jesus updated with patient status, agitation, need to start Precedex. Verbal order given to titrate Precedex gtt 0.1mcg every 15 min vs 30 min until adequate
sedation/max dose.
[2024-09-10] MEDS: PRECEDEX 100 IV (19:22)
--- NOTE | 2024-09-10 21:30 | PTCARENOTE ---
Patient continues to be agitated and restless. Jerking movements inconsistent with seizure like activity. Prn Ativan and prn dilaudid given as well as titration of precedex gtt. Temp increased to 100.8F. Room temperature cooled and excess linens
removed.
[2024-09-10] MEDS: LR 1000 IV (21:35)
[2024-09-10] MEDS: LR 500 IV (23:15)
--- NOTE | 2024-09-10 23:30 | PTCARENOTE ---
Addendum entered by Aurea Hooker RN 09/11/24 00:59:
Abdominal pain, agitation, hyperthermia and YOSELIN are all possible side effects of meth OD. Discussed with SALIMA Lee.
Original Note:
Reassessed. Assessment essentially unchanged except BBS clear. Patient continues to be quite agitated and restless, especially with stimulation. Precedex gtt titration, prn Dilaudid and prn Ativan--see SEP. He still does not follow commands nor open
his eyes. Bilateral pupils 4mm and sluggish but reactive. Abdomen seems more distended, bowel sounds hypoactive, ? of guarding with palpation. Patient seems more agitated with palpation of abdomen. Prn Dilaudid for agitation should help with pain.
Also, UO remains low, Jesus BORREGO notified, orders received for IVF bolus. See SEP. Temp 101.2. Orders received for Tylenol, see SEP. NGT clamped x1 hr after Tylenol given. Temperature continues to climb, ice packs placed under arms and at abdomen.
Restraints checked frequently due to patient agitation and pulling at restraints.
[2024-09-11] VITALS (49 sets, daily range): BP systolic 93–137; BP diastolic 54–91; BMI 25.2
[2024-09-11] MEDS: TYLENOL ORAL SOLUTION 650 MG PO ×2 (00:01→03:54)
[2024-09-11] MEDS: ATIVAN 1 MG IV ×4 (01:30→22:05)
--- NOTE | 2024-09-11 02:00 | PTCARENOTE ---
Complete cares given, CHG cloth bath, davis care, oral care, complete linen change. Prn Ativan was given during cares due to patient agitation/restlessness. Patient is extremely stiff with cares, fighting turns, extending legs, pulling at
restraints. Continues to have temp 101.5. Room temperature cooled, ice packs replaced to abdomen and chest.
[2024-09-11] MEDS: PRECEDEX 100 IV ×3 (02:27→16:20)
[2024-09-11] MEDS: DILAUDID 0.5 MG IV ×3 (03:55→09:32)
--- NOTE | 2024-09-11 04:00 | PTCARENOTE ---
Attempted to wean down on Precedex but Patient is becoming more severely agitated with stimulation. He is still not following commands. He is sitting up in bed and pulling on restraints, pulling himself down in bed, reaching for ETT. LILLIANA. ETT
repositioned to the right, 24cm at the lip. However, patient is tonguing the ETT and chewing on it, high pressuring the vent. UO remains fair to poor. Am labs drawn. Left hand SL from EMS, discontinued. New IV inserted right hand #18, good blood
return, flushes well. IVF/precedex site changed to right AC. The rest of assessment remains essentially unchanged.
[2024-09-11 04:08] LABS: Hematocrit 38.8 % (39.0-52.0); Hemoglobin 12.9 g/dL (13.0-18.0); Mean Corp Hgb Conc. 33.2 g/dL (33.0-37.0); Mean Corpuscular Hgb 30.9 pg (27.0-31.0); Mean Corpuscular Volume 92.8 fL (80.0-94.0); Mean Platelet Volume 9.2 fL (7.4-10.4); Platelet Count 211 10^3/uL (130-400); Red Blood Cell Count 4.18 10^6/uL (4.70-6.10); Red Cell Dist. Width 12.8 % (11.5-14.5); White Blood Cell Count 12.5 10^3/uL (4.8-10.8)
[2024-09-11 04:18] LABS: ALT (SGPT) 21 U/L (0-50); AST (SGOT) 23 U/L (17-59); Albumin 3.7 g/dl (3.5-5.0); Alkaline Phosphatase 72 U/L (38-126); Blood Urea Nitrogen 20 mg/dl (9-20); Calcium 8.3 mg/dl (8.4-10.2); Carbon Dioxide 30 mmol/L (22-30); Chloride 105 mmol/L (98-107); Creatine Phosphokinase 168 U/L (55-170); Glucose 116 mg/dl (70-99); Magnesium 1.9 mg/dl (1.6-2.3); Potassium 4.7 mmol/L (3.5-5.1); Sodium 142 mmol/L (135-145); Total Bilirubin 0.6 mg/dl (0.2-1.3); Total Protein 6.4 g/dl (6.3-8.2); eGFR > 60.00
[2024-09-11] MEDS: LR 1000 IV (04:26)
--- NOTE | 2024-09-11 07:16 | W.PN.INTV ---
Today's Communication / Plan
Recommendations
SBT trials today [facility] plan for extubation
Calm on Ativan PRN and Precedex, continue as needed
Re-eval pending extubation
If MS improves, may consider d/c back to [facility]
Otherwise, can transfer to floors later today if doing well
Assessment
-
Patient is a 59-year-old male with previous history of drug use presenting from [facility] for unresponsiveness. He reportedly had taken 1500 mg of methamphetamine around 9 AM day of admission. He was taken to the [facility]
where patient continued to decline prompting EMS transport to the ER. Due to mental status changes and extreme agitation, patient was intubated for airway protection. He remains unresponsive. UDS completed following fentanyl delivery in the ER,
but positive for buprenorphine, methadone, fentanyl, amphetamines, methamphetamines. Admitted to ICU for further management.
Unresponsiveness s/p intubation for airway protection
Methamphetamine overdose suspected
Myoclonic jerking
Hyperglycemia
Hypertensive urgency
History of drug use
Incarcerated status
Plan
Currently unresponsive, with periodic twitching
Will obtain head CT--neg
Stop sedation and observe off
If not improving, may consider neurologic consultation
Pain/sedation: Ativan as needed, Precedex
RASS goals: 0
Hemodynamically stable, not requiring pressors.
Cardiac history reviewed--none
No prior echo for review
Blood pressure is noted to be elevated, will add hydralazine IV as needed
Monitor on telemetry
Intubated for airway protection, SBT trials today with plan for extubation
Prior history of lung disease: none
Supplemental O2 as indicated to maintain sats > 89%
CXR/CT reviewed indicating no acute findings
NPO, diet advancement post extubation
Biomedical Engineer recommendations
Aspiration precautions, HOB > 30 degrees
Speech therapy eval can be considered if at elevated risk
GI prophylaxis if indicated for mechanical ventilation >48 hours, prior history of GERD, stress ulcer formation in the critically ill
Creat at baseline, no history of renal disease
Void trials
Follow urine output, critical I/Os
No signs/symptoms suspicious for infectious etiology at this time
Observe off antibiotics for now
Follow fever trend, WBC count
CBC stable, no signs of bleeding or coagulopathy.
DVT prophylaxis as assessed based on risk, including mechanical SCDs
Can transfuse if indicated for Hb <7, plt < 10
No prior h/o diabetes or thyroid disease
Monitor accuchecks PRN/SS coverage if needed
Diagnostic Data
Chest X-Ray: 09/10/24- No acute disease of the chest. Lines and tubes as described above.
CT Scan: HCT pending
Echo:
PFT's:
Reports and relevant images were personally reviewed.
Critical Care time 41 mins -- The patient is admitted for acute critical illness for the treatment of vital organ failure and/or prevention of further life-threatening conditions. Total care includes time spent in review of history, physical exam,
medications, hemodynamic/ventilator parameters, laboratory data, imaging and discussion with house staff, pharmacy, respiratory therapy, wage and salary administrator, and nursing.
Subjective Dataa
Subjective Data
Date of Service:
Date of Service: September 11, 2024
Chief Complaint: Visual Basic Programmer Follow Up
Subjective:
Remains on vent, no changes ON
Now on ativan and precedex, MS waxing/waning but more awake
Objective Data
Data Reviewed
Vital Signs / I&O / Oxygen:
Vital Signs
Temp Pulse Resp BP Pulse Ox
101.1 F H 86 16 121/75 95
09/11/24 04:00 09/11/24 06:30 09/11/24 06:30 09/11/24 06:30 09/11/24 06:30
Intake and Output
09/10/24 09/11/24 09/12/24
06:59 06:59 06:59
Intake Total 1360.3 / 1360.3
Output Total 2045
Balance -685.7 / -685.7
SaO2 [A/C] 98
SaO2 95
Physical Exam
General: Comfortable and Other (NAD)
HEENT: Normocephalic, Anicteric and Moist Mucous Membranes
Cardiovascular: S1-S2 and Regular Rhythm
Respiratory: Clear, Non-Labored Respirations and ET Tube
GI: Soft, Non Distended and Non Tender
Neurology: Tremors (periodic flinching) and Lethargic (arousable, agitation noted)
Skin: Warm, Dry and Good Color
Labs/Micro/Reports
Lab Data
09/11/24 03:31
09/11/24 03:31
Laboratory Results
09/10/24
13:48
PT 13.3
INR 0.96
APTT 23.9
--- NOTE | 2024-09-11 07:17 | PTCARENOTE ---
Report given verbally to CIPRIANO Rojo assuming care. Questions answered.
[2024-09-11] MEDS: MIRALAX 17 GRAMS TUBE (09:00)
[2024-09-11] MEDS: HEPARIN 5000 UNITS SC ×3 (09:00→23:58)
--- NOTE | 2024-09-11 09:00 | PTCARENOTE ---
Complete assessment done and documented in the worklist. Pt with bilat wrist restraints, and L lower ext with BC correctional metal cuff on, and 2 guards in room. Pt has periods on restlessness, does not follow commands. Precedex 1.1 mcg/kg/hr. LR
at 75 ml/hr infusing. Pt intubated , AC 12, TC 500, 40%, peep 5. Pt with shallow BSs throughout. NGT intact and capped. +BS noted. Tong cath in place, draining mod amt yellow urine. Pt seen by Dr Helms, update given.
--- NOTE | 2024-09-11 09:27 | CM ---
CM following re: discharge planning.
Reviewed pt's chart, met with pt, spoke to [facility] RN Trudi. Two guards at bedside.
Pt is a 59 year old male, admitted with primary dx of Unresponsiveness s/p intubation for airway protection. Pt remains intubated, continue supportive care.
Pt is admitted from [facility] and per guard pt will return back to [facility] when medically stable.
[facility] nursing report: [phone]
Discharge instructions fax: [phone].
D/C plan: return back to [facility] when medically stable.
CM will follow with discharge plan updates as hospitalization progresses.
--- NOTE | 2024-09-11 09:45 | W.PN.HOSP.TC ---
Today's Communication/Plan
-
see note
Assessment / Plan
Assessment / Plan
1. Methamphetamine overdose
Polysubstance use
-Patient was sent from correctional facility after patient was noted to using high-dose of methamphetamine.
-Patient was initially agitated although later in ER got lethargic/sedated
-Patient was intubated for airway protection
-Urine drug screen positive for amphetamine/methamphetamine. As well buprenorphine/methadone.
-Urine drug screen positive for fentanyl, likely with need to be given for intubation
-Currently patient on Precedex drip for sedation
-Requiring as needed Ativan
-Continue supportive care
-International Sales Manager following and help appreciated
2. Vent dependent respiratory failure
-For airway protection
-Vent weaning per perforator operator oil well
3. Toxic metabolic encephalopathy
-Initially reported to be agitated followed by sedated
-Likely from polysubstance use
-CT head without any acute abnormalities
4. Sepsis - Fever/leukocytosis
-fever likely due to methamphetamine overdose.
-Rule out sepsis with h/o of drug use.
-No skin greene to suggest IV use
-Check influenza/COVID/UA/blood cx. CXR relatively clear
-Maintain on empiric vancomycin and Zosyn
Full code
Heparin subq
Total critical care time 38 mins . Total critical care time documented does not include time spent on separately billed procedures or the services of residents, students, nurses or physician assistants. I personally saw and examined the patient. I
have reviewed all diagnostic interpretations and treatment plans as written. I was present for the myers portions of any procedures performed and the inclusive time noted in any critical care statement. Critical care time includes patient management
by me, time spent at the patients bedside, time to review lab and imaging results, discussing patient care, documentation in the medical record, and time spent with the family or caregiver.
Anticipated Discharge: > 48 hours
Subjective/Interval History
-
Date of Service: September 11, 2024
Patient remains intubated
Currently on Precedex drip
Patient at time rest was done fighting the restraints/vent
Continues to have fever
Objective Data
-
Labs:
Laboratory Results
09/10/24 09/11/24
23:26 03:31
WBC Cancelled 12.5 H
Hgb Cancelled 12.9 L
Hct Cancelled 38.8 L
Plt Count Cancelled 211 D
Sodium 142
Potassium 4.7
Chloride 105
Carbon Dioxide 30
BUN 20
Creatinine 0.9
Glucose 116 H
Calcium 8.3 L
Total Bilirubin 0.6
AST 23
ALT 21
Alkaline Phosphatase 72
Vital Signs:
Vital Signs
Temp Pulse Resp BP Pulse Ox
100.7 F H 86 16 121/75 96
09/11/24 08:00 09/11/24 06:30 09/11/24 06:30 09/11/24 06:30 09/11/24 07:27
I&O
09/10/24 09/11/24 09/12/24
06:59 06:59 06:59
Intake Total 1360.3 / 1360.3
Output Total 2346 / 2346
Balance -985.7 / -985.7
Review of Systems
-
Unable to obtain full review of systems at this time due to: Acuity and Patient Intubation
Physical Exam
-
General: Cachectic; Negative Appears in Distress
HEENT: Other (ET tube in place )
Respiratory: Clear to Auscultation
Cardiac: Regular Rhythm and S1/S2; Negative Murmur or Rub
GI: Soft and Nondistended
Musculoskeletal: No Edema
Neuro: Sedated
Psych: Agitated
--- NOTE | 2024-09-11 09:54 | PHA.VAN.IN ---
Assessment
- Assessment
Renal Function: Appears similar to baseline
Concomitant Antimicrobials: ampicillin/sulbactam
AUC Dosing Plan
- Dosing Variables
Dosing Weight (kg): 64
Dosing CrCl (ml/min): 71
Vd coefficient (L/kg): 0.7
- Empiric Dosing
Initial / Loading Dose: 1500mg - administration pending
Maintenance Regimen: Vanc 750mg Q12H starting at 1800
Estimated AUC (mcg*h/mL): 554
Estimated Peak (mcg*h/mL): 31.4
Estimated Trough (mcg/ml): 16.2
Estimated Half Life (H): 10.9
- Monitoring
No levels ordered at this time: consider levels in next few days
Pharmacokinetics Vancomycin I
- -
Patient Age: 59
Patient Sex: Male
Vancomycin Day #: 1
Indication: Other
Requesting Provider: Dr. Sarkis Mendoza
Height / Weight:
Height 5 ft 3 in
Actual Weight 64.4 kg
Pertinent Past Medical History: Polysubstance use disorder
- Vital Signs / Lab Results
Temp Pulse Resp BP Pulse Ox
100.7 F H 86 16 121/75 96
09/11/24 08:00 09/11/24 06:30 09/11/24 06:30 09/11/24 06:30 09/11/24 07:27
Lab Results - Hematology
09/10/24 09/10/24 09/11/24
13:49 23:26 03:31
WBC 10.2 Cancelled 12.5 H
Lab Results - Chemistry
09/10/24 09/11/24
13:49 03:31
BUN 21 H 20
Creatinine 0.8 0.9
Albumin 4.2 3.7
Lab Results - Urine
09/10/24
14:39
Urine Nitrite (Reflex) Negative
Leukocyte Esterase Rfl Negative
Urine WBC (Reflex) 0-2
Ur Squamous Epith Cells 0-2
--- NOTE | 2024-09-11 10:45 | PTCARENOTE ---
Bld cultures x2, Covid 19, flu A+B, and U/A sterile from davis port, all obtained and sent to [facility]. Antibiotics started after cultures sent. PT placed on CPAP 5, PS 5, 40%.
[2024-09-11 11:26] LABS: Urine Albumin 2+ (Neg - Trace); Urine Bilirubin Negative (Negative); Urine Character Slightly Cloudy (Clear); Urine Color Yellow; Urine Glucose Negative (Negative); Urine Ketone Negative (Negative); Urine Leukocyte 2+ (Negative); Urine Nitrite Negative (Negative); Urine Occult Blood 2+ (Negative); Urine Urobilinogen 1+ (Neg - 1+)
[2024-09-11] MEDS: UNASYN IV ×3 (11:28→21:03)
[2024-09-11] MEDS: VANCOCIN 530 MG IV (11:38)
[2024-09-11 11:39] LABS: Urine Bacteria Few (Negative); Urine Mucus Moderate; Urine Squamous Cell 0-2 /LPF (Few)
[2024-09-11 11:40] LABS: Urine White Cell 0-2 /HPF (0-5)
[2024-09-11 11:53] LABS: COVID-19 Antigen Negative (Negative)
[2024-09-11 12:05] LABS: B.E. 4.7 mmol/L; HCO3 29.2 mmol/L (21-28); PCO2 42 mmHg (35-48); PO2 190 mmHg (83-108); pH 7.45 (7.35-7.45)
--- NOTE | 2024-09-11 15:36 | PTCARENOTE ---
Pt extubated at 1215, presently on 4l ND, 93% sat. Pt's precedex weaned down to 0.5 mcg/kg/hr. Pt remains restrained and still restless.
[2024-09-11] MEDS: VANCOCIN 150 IV (18:15)
--- NOTE | 2024-09-11 18:34 | PTCARENOTE ---
Back care and davis care done, draw sheets changed. Precedex weaned down to 0.3 mcg/kg/hr. Ativan 0.5 mg iv given, as pt getting agitated. Pt now knows his name, but not place or time.
--- NOTE | 2024-09-11 19:00 | PTCARENOTE ---
Addendum entered by Aurea Hooker RN 09/11/24 21:37:
In addition to guards, left ankle is cuffed to bed--ABD pads placed between cuff and skin to prevent injury, pressure wound.
Original Note:
Patient received lying in bed, restless, pulling at bilateral wrist restraints, trying to sit up. See assessment charted. Guards x 2 at bedside. Patient opens eyes to name but is very confused. He does not know where he is and he is unable to answer
the year. He knows his name and when asked if his abdomen hurts when I palpate he is able to answer, 'a little bit.' His mouth is dry and has barnhart secretions from coughing. Oral care rendered, patient is cooperative. He follows some commands but not
others. Respirations are non labored and BBS are clear except RML and RLL diminished. S1S2 are regular but distant. SR on CM. Abdomen is round and soft but slightly tender to palpation. Bowel sounds are very hypoactive. Tong catheter patent
draining slightly cloudy jett urine. NGT via right nare taped in place to LCS with clear and green bile drainage. He is on a Precedex gtt at 0.3mcg, titrated to keep patient calm. He continues to have jerking movements and low grade temp of 100F
rectally. Repositioned in bed. Bilateral soft wrist restraints in place. Checked and retied, checked every 2 hours. Patient is repositioning self frequently in bed, shifting weight. HOB up at 30 degrees.
--- NOTE | 2024-09-11 22:10 | PTCARENOTE ---
Patient continues to be quite agitated. Pulling at restraints, trying to sit up, reaching for davis catheter, restless in bed. BP more elevated. Camouflaging lines/tubes as much as able. Prn Ativan given per order. Emotional support and
encouragement given. Attempt to reorient as much as possible. Repositioned for comfort. Patient calmer after Ativan. No change in Precedex at this time. Continue Precedex at 0.5mg/kg/hr for now.
[2024-09-12] VITALS (37 sets, daily range): BP systolic 78–162; BP diastolic 59–90; BMI 25.3
--- NOTE | 2024-09-12 | PTCARENOTE ---
Essentially no change in patient's physical assessment. Occasional loose NPC. Although he continues to have twitching and myooclonal jerking, he generally appears calmer. He remains confused. VSS. Repositioned. Oral care. No apparent distress or
discomfort.
[2024-09-12] MEDS: ATIVAN 1 MG IV (02:11)
[2024-09-12] MEDS: LR 1000 IV (02:11)
--- NOTE | 2024-09-12 02:15 | PTCARENOTE ---
Ativan prn given for restlessness and agitation. Complete cares given, CHG cloth bath, linens changed. During cares it is noted that left distal forearm is circumferentially red and hot to touch, swollen when compared to the right. Jesus BORREGO made
aware. Patient is already on IVABx. Left arm elevated. Patient is more awake and attempts to converse but is confused. However, he is easier to redirect and more cooperative.
--- NOTE | 2024-09-12 02:26 | W.PN.UPDATE ---
Update Note
Progress Note Update
Concern for cellulitis of left forearm, patient on Unasyn. Plan to monitor area.
[2024-09-12] MEDS: UNASYN IV ×2 (03:33→10:41)
--- NOTE | 2024-09-12 04:00 | PTCARENOTE ---
Patient appears to be sleeping comfortably over the past 90 minutes when left undisturbed. Eyes closed, respirations non labored. VSS. Rouses easily. Will try to slowly titrate down precedex. Repositioned. Temperature is normal. Saturating well on
3L/nc.
--- NOTE | 2024-09-12 04:50 | PTCARENOTE ---
Patient is more awake and conversational this morning. He is able to tell me the tattoo on his right FA is his dog, the type of dog, and the dog's name. He is able to tell me his name. He is still confused to time and place. He is asking for a
cigarette, accepts offer of nicotine patch. Still with occasional myoclonal jerking but less. Asking for something to drink. Swabbed mouth, takes po ice chip without evidence of aspiration. Will trial clamp NGT. Short burst of PAT noted on CM. Am
labs drawn.
[2024-09-12] MEDS: VANCOCIN 150 IV (05:20)
[2024-09-12 05:33] LABS: Hematocrit 37.9 % (39.0-52.0); Hemoglobin 12.6 g/dL (13.0-18.0); Mean Corp Hgb Conc. 33.2 g/dL (33.0-37.0); Mean Corpuscular Hgb 30.6 pg (27.0-31.0); Mean Platelet Volume 9.6 fL (7.4-10.4); Platelet Count 193 10^3/uL (130-400); Red Blood Cell Count 4.12 10^6/uL (4.70-6.10); Red Cell Dist. Width 12.4 % (11.5-14.5); White Blood Cell Count 10.6 10^3/uL (4.8-10.8)
[2024-09-12] MEDS: APRESOLINE 10 MG IV (05:57)
[2024-09-12 06:10] LABS: Blood Urea Nitrogen 20 mg/dl (9-20); Calcium 8.5 mg/dl (8.4-10.2); Carbon Dioxide 28 mmol/L (22-30); Chloride 105 mmol/L (98-107); Estimated Creatinine Clearance 91 ml/min; Glucose 91 mg/dl (70-99); Potassium 3.9 mmol/L (3.5-5.1); Sodium 139 mmol/L (135-145); eGFR > 60.00
--- NOTE | 2024-09-12 07:25 | PTCARENOTE ---
Report given verbally to CIPRIANO Hutchison from oncoming shift. Questions answered.
--- NOTE | 2024-09-12 07:29 | W.PN.INTV ---
Today's Communication / Plan
Recommendations
Weaning off precedex, MS remains low--consider neuro eval if ongoing
NG with decreasing output, suspect Ileus, check AXR
Speech eval, d/c tube if output low, diet advancement
Ativan PRN
Transfer to tele per team, we will sign off upon transfer
Assessment
-
Patient is a 59-year-old male with previous history of drug use presenting from [facility] for unresponsiveness. He reportedly had taken 1500 mg of methamphetamine around 9 AM day of admission. [facility]
where patient continued to decline prompting EMS transport to the ER. Due to mental status changes and extreme agitation, patient was intubated for airway protection. He remains unresponsive. UDS completed following fentanyl delivery in the ER,
but positive for buprenorphine, methadone, fentanyl, amphetamines, methamphetamines. Admitted to ICU for further management.
Unresponsiveness s/p intubation for airway protection
Extubated 09/11/24
Methamphetamine overdose suspected
Myoclonic jerking
Hyperglycemia
Hypertensive urgency
History of drug use
Incarcerated status
Ileus suspected
Plan
Currently unresponsive, with periodic twitching
Will obtain head CT--neg
Stop sedation and observe off
If not improving, may consider neurologic consultation
Pain/sedation: Ativan as needed, Precedex weaning to off
RASS goals: 0
Hemodynamically stable, not requiring pressors.
Cardiac history reviewed--none
No prior echo for review
Blood pressure is noted to be elevated, will add hydralazine IV as needed
Monitor on telemetry
Intubated for airway protection, extubated 09/11/24
Prior history of lung disease: none
Supplemental O2 as indicated to maintain sats > 89%
CXR/CT reviewed indicating no acute findings
NPO, diet advancement post extubation--can pull NG if output remains low and advance diet
NGT remains on suction, check AXR for Ileus
Computer Information Systems Professor recommendations
Aspiration precautions, HOB > 30 degrees
Speech therapy eval
GI prophylaxis if indicated for mechanical ventilation >48 hours, prior history of GERD, stress ulcer formation in the critically ill
Creat at baseline, no history of renal disease
Void trials
Follow urine output, critical I/Os
No signs/symptoms suspicious for infectious etiology at this time
Observe off antibiotics for now
Follow fever trend, WBC count
CBC stable, no signs of bleeding or coagulopathy.
DVT prophylaxis as assessed based on risk, including mechanical SCDs
Can transfuse if indicated for Hb <7, plt < 10
No prior h/o diabetes or thyroid disease
Monitor accuchecks PRN/SS coverage if needed
Diagnostic Data
Chest X-Ray: 09/10/24- No acute disease of the chest. Lines and tubes as described above.
CT Scan: HCT negative
Echo:
PFT's:
Reports and relevant images were personally reviewed.
Critical Care time 31 mins -- The patient is admitted for acute critical illness for the treatment of vital organ failure and/or prevention of further life-threatening conditions. Total care includes time spent in review of history, physical exam,
medications, hemodynamic/ventilator parameters, laboratory data, imaging and discussion with house staff, pharmacy, respiratory therapy, bookkeeping clerk, and nursing.
Subjective Dataa
Subjective Data
Date of Service:
Date of Service: September 12, 2024
Chief Complaint: Wound Care Specialist Follow Up
Subjective:
Weaning off precedex this AM
MS still appears decreased, no new events
Objective Data
Data Reviewed
Vital Signs / I&O / Oxygen:
Vital Signs
Temp Pulse Resp BP Pulse Ox
98.6 F 75 21 128/72 95
09/12/24 07:03 09/12/24 06:30 09/12/24 06:30 09/12/24 06:30 09/12/24 06:30
Intake and Output
09/11/24 09/12/24 09/13/24
06:59 06:59 06:59
Intake Total 1360.3 / 1563.2 2723.1 / 2723.1
Output Total 2346 / 2376 1467 / 1467
Balance -985.7 / -812.8 1256.1 / 1256.1
SaO2 [A/C] 98
SaO2 95
Nasal Cannula flow liters per 2
minute
Physical Exam
General: Comfortable and Other (NAD)
HEENT: Normocephalic, Anicteric and Moist Mucous Membranes
Cardiovascular: S1-S2 and Regular Rhythm
Respiratory: Clear and Non-Labored Respirations
GI: Soft, Non Distended and Non Tender
Neurology: Tremors (periodic flinching) and Lethargic (arousable, agitation noted)
Skin: Warm, Dry and Good Color
Labs/Micro/Reports
Lab Data
09/12/24 05:17
09/12/24 05:17
Laboratory Results
09/11/24
11:48
pH 7.45
pCO2 42
pO2 190 H
HCO3 29.2 H
O2 Delivery Level
Microbiology
09/11/24 11:12 Nasal Swab Influenza Types A & B (JESSICA) - Final
Negative for Influenza A & B, NAAT
Negative results must be combined with clinical observations
and patient history.
Nucleic Acid Amplification test (NAAT)performed on the
[employer] NOW platform.
[2024-09-12] MEDS: HEPARIN 5000 UNITS SC ×3 (07:59→23:38)
[2024-09-12] MEDS: NICODERM TRANSDERMAL 21 MG TRANSDERM (08:00)
[2024-09-12] MEDS: MIRALAX 17 GRAMS TUBE (08:00)
[2024-09-12] MEDS: PRECEDEX 100 IV (08:00)
--- NOTE | 2024-09-12 09:00 | PTCARENOTE ---
Rec'd pt at 0800 resting in bed sedated on Precedex at 0.2 mcg. On that dose does get intermittently restless- mostly because he wants something to drink. Gave pt an ice chip and tolerated. Overall pt is drowsy but easily arousable. RASS a 1 to -1.
Oriented to self but not to place, time or events. Thought he was in [place]. Asking where is girlfriend is. Does tend to get forgetful and needs reminding of events and directions. Guards remain at the bedside and shackle on his L ankle. Site wnl.
Speech is sl slow but clear. TIJERINA. Does have some intermittent jerking type movements- but minimal at best. Bilat soft wrist restraints in place as pt tends to reach up toward his NG tube. Skin is pink wm and dry. Pt does have a sl swollen reddened
area that goes from his L wrist to the top of his lower forearm. Does admit to some tenderness on palpation but no complaints at rest. Respirs- rec'd pt on 2l nc O2 with sats of 97%- changed at 0800 to RA with sats of 93%. BS are sl decreased at the
bases. Pt does have some nasal congestion. Coughed one time a non prod cough. Monitor SR. + pulses. No edema. VS as documented. Abd is soft - some tenderness to palpation. Hypoactive BS. R nare [place] placement checked. Clamped after Miralax given.
Prior drained a minimal amt of greenish drainage. No stools. Davis intact for yellow urine. Capped int intact R hand. IV LR and Precedex infusing via RAC IV site. Site wnl. Pt turned and repositioned. Skin, mouth and davis care given. Plan of care
reviewed with pt. Call wooten in reach.
--- NOTE | 2024-09-12 10:15 | PTCARENOTE ---
Remains resting. Calm and drowsy but is easily arousable. Just keeps asking for something to drink. Precedex gtt dc'd at 1000 as pt is cooperative and drowsy and per MD request. Will get an abd xray and possible dc ng depending on results. Bilat
wrist restraints changed over to mitts to protect pt from removing his NG tube that he does tend to reach for. No other changes
--- NOTE | 2024-09-12 11:30 | PTCARENOTE ---
Abd xray taken as ordered.
--- NOTE | 2024-09-12 13:15 | PTCARENOTE ---
Pt dozing most of the day. Sleepy but easily arousable. When awake just asks for something to drink. Has been cooperative and has remained off of Precedex. Speech therapy here to do eval and OK given to remove NG tube after ABd xray results reported
to Laly Mendoza and Analia. NG removed without difficulty. Oral care given. Pt repositioning himself.
--- NOTE | 2024-09-12 14:00 | PTCARENOTE ---
Passed swallow eval and diet ordered. Currently susan valerio'd as pt is for transfer to med/surg. #25 Condom cath placed.
--- NOTE | 2024-09-12 14:21 | PTOTSP ---
Dysphagia Therapy
Oral/pharyngeal swallowing suspected to be within functional limits. Signs of odynophagia noted, likely related to recent intubation/extubation and recent large bore NGT that was removed prior to this evaluation.
Recommend:
1. Regular, Thin liquids
2. Medications as best tolerated
3. Supervision, assistance (while restrained)
4. Oral care 2x daily
5. Brief follow up to ensure diet tolerance given risk for fluctuation with TME
--- NOTE | 2024-09-12 14:47 | W.PN.HOSP.TC ---
Today's Communication/Plan
-
transfer med/surg
stop abx
start diet
Assessment / Plan
Assessment / Plan
1. Methamphetamine overdose
Polysubstance use
-[facility] after patient was noted to using high-dose of methamphetamine.
-Patient was initially agitated although later in ER got lethargic/sedated
-Patient was intubated for airway protection in ER
-Urine drug screen positive for amphetamine/methamphetamine. As well buprenorphine/methadone.
-Urine drug screen positive for fentanyl, likely with need to be given for intubation
-Taken off of Precedex drip
-Continue as needed Ativan
2. Vent dependent respiratory failure -extubated
-prn O2 through NC
3. Toxic metabolic encephalopathy
-Initially reported to be agitated followed by sedated
-Likely from polysubstance use
-CT head without any acute abnormalities
4. Sepsis - Fever/leukocytosis - ruled out.
-fever likely due to methamphetamine overdose.
-No skin greene to suggest IV use
-Check influenza/COVID/UA/blood cx. CXR relatively clear
-discontinue further abx
5. Acute TME
-Somnolent with methamphetamine out of system
-Continue supportive care
-Clear speech therapy evaluation, started on regular diet
-On soft restraints, to be removed when appropriate
Full code
Heparin subq
Downgrade to med/surg
Anticipated Discharge: 24 - 48 hours
Subjective/Interval History
-
Date of Service: September 12, 2024
Extubated yesterday
Patient remains somnolent
Afebrile overnight
No other acute events reported
Objective Data
-
Labs:
Laboratory Results
09/12/24
05:17
WBC 10.6
Hgb 12.6 L
Hct 37.9 L
Plt Count 193
Sodium 139
Potassium 3.9
Chloride 105
Carbon Dioxide 28
BUN 20
Creatinine 0.7
Glucose 91
Calcium 8.5
Vital Signs:
Vital Signs
Temp Pulse Resp BP Pulse Ox
98.2 F 76 22 119/61 92
09/12/24 11:49 09/12/24 14:00 09/12/24 14:00 09/12/24 14:00 09/12/24 14:00
I&O
09/11/24 09/12/24 09/13/24
06:59 06:59 06:59
Intake Total 1360.3 / 1563.2 2723.1 / 2801.4 904.9 / 904.9
Output Total 2346 / 2376 1467 / 1467 410 / 410
Balance -985.7 / -812.8 1256.1 / 1334.4 494.9 / 494.9
Review of Systems
-
Unable to obtain full review of systems at this time due to: Acuity
Physical Exam
-
General: Cachectic; Negative Appears in Distress
HEENT: Other (ET tube in place )
Respiratory: Clear to Auscultation
Cardiac: Regular Rhythm and S1/S2; Negative Murmur or Rub
GI: Soft and Nondistended
Musculoskeletal: No Edema
Neuro: Oriented and No Motor Deficits; Negative Awake (somnolent)
Psych: Calm
--- NOTE | 2024-09-12 15:00 | PTCARENOTE ---
Awaiting food. Pt dozes easily and has been dipping to 89%- O2 reapplied at 1L nc with sats up to 94%. No other changes
[2024-09-12] MEDS: LR IV (16:21)
--- NOTE | 2024-09-12 17:00 | PTCARENOTE ---
Ate about 80% of his meal- supervised. No difficulty noted with swallowing. Fed himself. No other changes in assessment. Continues to be drowsy. Has not voided yet since davis removal. Denies need to void. Repositioning himself. VS as documented.
--- NOTE | 2024-09-12 20:00 | PTCARENOTE ---
Patient received lying in bed with eyes closed, lying still, respirations non labored. He rouses easily to name called. He is drowsy. His orientation has much improved from this morning. He is oriented to person and place but remains confused to
year. However, his conversation makes sense and he is able to state his needs. S1S2 regular, SR on CM. BBS with left lung clear t/o, BUL clear anteriorly, right lung with fine scattered crackles t/o posteriorly. Positive pulses x 4 extremities, no
LE edema. However, left forearm slightly edematous, more swollen when compared to the right FA. Left FA is red and very warm to touch, tender--appears cellulitic. Patient c/o mild abdominal discomfort. Refuses offer of Tylenol. He c/o mild nausea.
Abdomen is round and soft but slightly tender to palpation. Bowel sound hypoactive x 4 quad. Taking po without difficulty. HNV since davis catheter removed but denies urge to void at this time. Condom catheter in place. Guards x 2 at the bedside,
left ankle with shackle in place.
--- NOTE | 2024-09-12 21:00 | PTCARENOTE ---
Patient officially release from custody of [facility]. His belongings are at the bedside from the [facility]. Clothing is in a vacuum sealed bag. His phone as well as his wallet with ID and credit cards are also in belongings. Also noted is
a pair of eyeglasses that are broken. Security notified of release of patient, spoke with Arturo. He states no need to lock wallet in security that they may stay with the patient.
Patient requests to go the bathroom to have a BM. Assisted patient to sit at the edge of the bed and then walked with patient to the bathroom. Gait is slow and slightly unsteady. Fall risk. Stayed with patient right outside the door with door
cracked. Condom catheter became dislodged with voiding clear jett urine. Patient denies BM but reports passing flatus. Assisted back to bed.
Patient is requesting something to eat. [place] sandwich provided--he ate 1/2 of turkey sandwich. Brushed teeth. Room darkened and quieted for sleep. This RN is seated outside of the patient's room at the nurses station with patient room door open.
This RN can visualize patient.
Left FA looks worse upon assessment compared to this morning. Emily Lopez APN notified. She assessed patient and placed him on Keflex ABx.
--- NOTE | 2024-09-12 23:24 | W.PN.UPDATE ---
Update Note
Progress Note Update
Patient c/o left arm pain which is warm to touch and reddish color which nursing notes is worsening from yesterday. No open areas but area is covered in tattoos. EMS placed a left hand IV site in the field prior to admission. Will add Keflex po for
now.
[2024-09-13] VITALS (8 sets, daily range): BP systolic 135–176; BP diastolic 83–115
--- NOTE | 2024-09-13 02:30 | PTCARENOTE ---
Patient climbed OOB and bed alarm triggered, patient stating, 'I have to go to the bathroom.' Admits he forgot to call for assistance. Assisted to stand at bedside to void per urinal. Assisted back to bed.
--- NOTE | 2024-09-13 04:50 | PTCARENOTE ---
Assisted patient to the bathroom. He has unsuccessfully been trying to have a BM. I have contacted house FOREST TECHNOLOGY PROFESSORMaren Wilkerson and requested stool softener and laxative. I advised patient to stay well hydrated. He c/o urge to have BM but is having discomfort
and is unable to go.
--- NOTE | 2024-09-13 05:30 | PTCARENOTE ---
Addendum entered by Aurea Hooker RN 09/13/24 06:35:
Patient is alert and oriented, anxious. Emotional support and encouragement provided.
Original Note:
Patient has expressed desire to leave. He does not have a ride home. No money for Uber/Lyft and he cannot get a hold of his friend. However, we are to contact security before patient leaves. Security contacted who in turn called police. Patient's
belongings provided. SL right AC dc'd catheter intact. Patient is getting dressed. Security and hospital LASTING ROOM MACHINE OPERATOR at bedside. [place] nursing supervisor fiber locking contacted. However, once confronted with the prospect of being arrested once he leaves, he changed his
mind and decided to stay.
--- NOTE | 2024-09-13 06:00 | PTCARENOTE ---
Patient declined to have blood work drawn at this time.
--- NOTE | 2024-09-13 06:50 | PTCARENOTE ---
Report given verbally to oncoming Gwendolyn chino RN. Questions answered.
[2024-09-13] MEDS: COLACE 100 MG PO (07:10)
[2024-09-13] MEDS: KEFLEX 500 MG PO ×4 (07:10→21:34)
[2024-09-13] MEDS: NICODERM TRANSDERMAL 21 MG TRANSDERM (07:10)
[2024-09-13] MEDS: MIRALAX 17 GRAMS TUBE (07:11)
[2024-09-13] MEDS: HEPARIN SC (07:11)
[2024-09-13] MEDS: TYLENOL ORAL SOLUTION 650 MG PO (07:12)
--- NOTE | 2024-09-13 07:23 | PTCARENOTE ---
recd pt medsurg level of care, cooperative, resting in bed, declining labs and heparin at this time, asking for pain meds and 'suboxone' which he says he takes regularly, COWS score obtained, aware of plans for day and will discuss with MD. ordered
breakfast. L forearm mildly pink swollen, handoff with previous RN approx same as overnight, instructed to elevate, doesn't want ice/heat at this time. lungs noted faint post L base cr, encouraged C&DB.
[2024-09-13] MEDS: SUBUTEX 24 MG SL (10:21)
[2024-09-13] MEDS: DULCOLAX 10 MG PO (10:21)
--- NOTE | 2024-09-13 10:41 | PTCARENOTE ---
see MAR, several attempts for BM in bathroom, aware of plans, reluctant to consider SSE at this time. Dr. Mendoza visited, reviewed plan of care. call wooten in reach, ad tuyet in room, gait steady. no distress.
[2024-09-13] MEDS: DULCOLAX 10 MG RECTAL (15:00)
--- NOTE | 2024-09-13 15:01 | W.PN.HOSP.TC ---
Today's Communication/Plan
-
laxatives for BM
subutex started
possible d/c today if have BM
Assessment / Plan
Assessment / Plan
1. Methamphetamine overdose
Polysubstance use
-Patient was sent from correctional facility after patient was noted to using high-dose of methamphetamine.
-Patient was initially agitated although later in ER got lethargic/sedated
-Patient was intubated for airway protection in ER
-Urine drug screen positive for amphetamine/methamphetamine. As well buprenorphine/methadone.
-Urine drug screen positive for fentanyl, likely with need to be given for intubation
-Taken off of Precedex drip
-Continue as needed Ativan
-PDMP reviewed and patient was on buprenorphine/naloxone 8-2mg 3 films/daily. Changing to buprenorphine 24 mg oral liquid while in hospital.
2. Vent dependent respiratory failure -extubated
-prn O2 through NC
3. Toxic metabolic encephalopathy -resolved
-Likely from polysubstance use
-CT head without any acute abnormalities
-cleared speech eval
4. Sepsis - Fever/leukocytosis - ruled out.
-fever likely due to methamphetamine overdose.
-No skin greene to suggest IV use
-Check influenza/COVID/UA/blood cx. CXR relatively clear
-discontinue further abx
5. Constipation
-abd xr did show mod stool burden
-last BM 2 wks back per patient, probably not correct
-declining enema. suppos ordered
Full code
Heparin subq
Anticipated Discharge: Within 24 hours
Subjective/Interval History
-
Date of Service: September 13, 2024
having difficulty with bowel movements
More awake
No other reported problems
Objective Data
-
Labs:
Laboratory Results
09/13/24
06:00
WBC Cancelled
Hgb Cancelled
Hct Cancelled
Plt Count Cancelled
Sodium Cancelled
Potassium Cancelled
Chloride Cancelled
Carbon Dioxide Cancelled
BUN Cancelled
Creatinine Cancelled
Glucose Cancelled
Calcium Cancelled
Vital Signs:
Vital Signs
Temp Pulse Resp BP Pulse Ox
98.4 F 83 18 176/106 96
09/13/24 07:10 09/13/24 07:10 09/13/24 07:10 09/13/24 12:00 09/13/24 07:10
I&O
09/12/24 09/13/24 09/14/24
06:59 06:59 06:59
Intake Total 2723.1 / 2801.4 1602.4 / 1602.4
Output Total 1467 / 1467 710 / 710
Balance 1256.1 / 1334.4 892.4 / 892.4
Review of Systems
-
Respiratory: Reports No Symptoms
Cardiac: Reports No Symptoms
Abdomen/GI: Reports Constipated; Denies Abdominal Pain
Physical Exam
-
General: Cachectic; Negative Appears in Distress
HEENT: Other (ET tube in place )
Respiratory: Clear to Auscultation
Cardiac: Regular Rhythm and S1/S2; Negative Murmur or Rub
GI: Soft and Nondistended
Musculoskeletal: No Edema
Neuro: Oriented and No Motor Deficits; Negative Awake (somnolent)
Psych: Calm
--- NOTE | 2024-09-13 16:50 | PTCARENOTE ---
still very uncomfortable r/t constipation. dulcolox suppos re-attempted, agreeable. in bathroom multiple times, did increase fluids and ambulate today several times. finally agreed to soap suds enema, unable to tolerated more than approx 300 ml,
presently in bathroom, some brown stool visible in toilet and on glove post admin. advised to ring for assistance.
--- NOTE | 2024-09-13 17:59 | TRANSFER ---
tsf by wc to new room after small results from SSE. uncomfortable, looking forward to resting in bed/sleeping in new room, aware he needs to order dinner.
[2024-09-14 03:07] VITALS: BP 133/87
--- NOTE | 2024-09-14 03:30 | PTCARENOTE ---
Pt. requesting to take shower, notified TIMOTHY Lopez, order put in, pt. has steady gait.
[2024-09-14] MEDS: TYLENOL ORAL SOLUTION 650 MG PO (03:53)
[2024-09-14 07:10] VITALS: BP 148/92
[2024-09-14] MEDS: MIRALAX TUBE (07:28)
[2024-09-14] MEDS: SUBUTEX 24 MG SL (07:42)
[2024-09-14] MEDS: KEFLEX 500 MG PO (07:42)
[2024-09-14] MEDS: NICODERM TRANSDERMAL 21 MG TRANSDERM (07:42)
[2024-09-14] MEDS: IMODIUM 4 MG PO (07:58)
[2024-09-14 09:07] LABS: Hematocrit 42.5 % (39.0-52.0); Hemoglobin 14.3 g/dL (13.0-18.0); Mean Corp Hgb Conc. 33.6 g/dL (33.0-37.0); Mean Corpuscular Hgb 30.6 pg (27.0-31.0); Mean Corpuscular Volume 90.8 fL (80.0-94.0); Mean Platelet Volume 9.5 fL (7.4-10.4); Platelet Count 218 10^3/uL (130-400); Red Blood Cell Count 4.68 10^6/uL (4.70-6.10); Red Cell Dist. Width 12.4 % (11.5-14.5); White Blood Cell Count 9.3 10^3/uL (4.8-10.8)
[2024-09-14 09:27] LABS: Blood Urea Nitrogen 14 mg/dl (9-20); Carbon Dioxide 29 mmol/L (22-30); Chloride 98 mmol/L (98-107); Estimated Creatinine Clearance 91 ml/min; Glucose 103 mg/dl (70-99); Potassium 3.6 mmol/L (3.5-5.1); Sodium 136 mmol/L (135-145); eGFR > 60.00
--- NOTE | 2024-09-14 10:23 | PTCARENOTE ---
Addendum entered by Krystal Dueñas RN 09/14/24 10:43:
09/14- Bianca Prakash called back telling MARTHA Luly to give patient information of [facility] Police and whom to call. Advised this is beyond our scope and jurisdiction. Asked whose liability this is if patient does not comply with parole
and/or warrant instructions. advised it is the patient's own responsibility. Contacted Security Rn Registry at this hospital for further assistance.
Original Note:
09/14- Spoke with Lieutenant Prakash at [facility]. As per , patient is no longer an inmate at [facility], and we are to look through his belongings and give him instructions on how to contact another county in
which he has a warrant. He is then to call the back. I advised this is out of our scope of responsibility, and we have nothing to do with [place] or Warrants for another [facility]. He advised since patient is no longer a [facility] inmate, they
are not responsible. I then called Security to look through patient's belongings, then advised patient to call Clinical Director back.
--- NOTE | 2024-09-14 10:31 | W.PN.HOSP.TC ---
Today's Communication/Plan
-
d/c home
Assessment / Plan
Assessment / Plan
1. Methamphetamine overdose
Polysubstance use
-Patient was sent from correctional facility after patient was noted to using high-dose of methamphetamine.
-Patient was initially agitated although later in ER got lethargic/sedated
-Patient was intubated for airway protection in ER
-Urine drug screen positive for amphetamine/methamphetamine. As well buprenorphine/methadone.
-Urine drug screen positive for fentanyl, likely with need to be given for intubation
-Taken off of Precedex drip
-PDMP reviewed and patient was on buprenorphine/naloxone 8-2mg 3 films/daily. Changing to buprenorphine 24 mg oral liquid while in hospital.
-Patient follow up with [facility]
2. Vent dependent respiratory failure -extubated
-prn O2 through NC
3. Toxic metabolic encephalopathy -resolved
-Likely from polysubstance use
-CT head without any acute abnormalities
-cleared speech eval
4. Sepsis - Fever/leukocytosis - ruled out.
-fever likely due to methamphetamine overdose.
-No skin greene to suggest IV use
-Check influenza/COVID/UA/blood cx. CXR relatively clear
-discontinue further abx
5. Constipation
Laxative induced diarrhea
-abd xr did show mod stool burden
-now have diarrhea from laxatives
Full code
Heparin subq
More than 30 minutes spent in discharge including
Final examination of the patient
Summarizing hospital stay
Instructions for continuing care to all relevant caregivers
Preparation of discharge records, prescriptions, and referral forms
Total time spent (in minutes): 39 mins
Anticipated Discharge: Today
Subjective/Interval History
-
Date of Service: September 14, 2024
having some diarrhea overnight
no abd pain/nausea/vomiting
Objective Data
-
Labs:
Laboratory Results
09/14/24
08:56
WBC 9.3
Hgb 14.3
Hct 42.5
Plt Count 218
Sodium 136
Potassium 3.6
Chloride 98
Carbon Dioxide 29
BUN 14
Creatinine 0.7
Glucose 103 H
Calcium 9.0
Vital Signs:
Vital Signs
Temp Pulse Resp BP Pulse Ox
97.8 F 94 14 148/92 100
09/14/24 07:10 09/14/24 07:10 09/14/24 07:10 09/14/24 07:10 09/14/24 07:10
I&O
09/13/24 09/14/24 09/15/24
06:59 06:59 06:59
Intake Total 1602.4 / 1602.4 480 / 480
Output Total 710 / 710
Balance 892.4 / 892.4 480 / 480
Review of Systems
-
Respiratory: Reports No Symptoms
Cardiac: Reports No Symptoms
Abdomen/GI: Reports Diarrhea; Denies Abdominal Pain, Nausea or Vomiting
Physical Exam
-
General: No Apparent Distress
HEENT: Negative Oxygen
Neuro: Awake, Alert and Oriented
--- NOTE | 2024-09-14 10:49 | CM ---
Per Attending patient is stable for discharge; and is not returning to the [facility]
CM spoke with Lieutenant Prakash @ [facility] # [phone]; he reported that patient is no longer in custody; patient is to call [facility] Police #[phone] and the District Justice # [phone] now
CM provide the information to the patient
Patient does not have transportation; CM asked to schedule LYFT
Patient's ; destination: [address] [place] [address]
4 [place] Charge Nurse, Krystal Burnette notified of information; she discussed patient with hospital security (see her note)
--- NOTE | 2024-09-14 11:49 | PTCARENOTE ---
Discharge order placed for pt. Security notified of discharge order. Charge Nurse contacted [facility]. Charge Nurse spoke with Lieutenant Prakash at [facility]. As per , patient is no
longer an inmate at [facility], and we are to look through his belongings and give him instructions on how to contact another [facility] in which he has a warrant. He is then to call the [place]iz[place]ht back. She advised this is out of our scope of
responsibility, and we have nothing to do with [place] or Warrants for another [facility]. He advised since patient is no longer a [place] inmate, they are not responsible. Pt was advised that CM was setting up transport for him; however, pt declined
waiting for transport to be set up and was brought to main entrance per his request.
--- NOTE | 2024-09-14 15:41 | W.DCSUMMARY ---
Discharge Summary
Discharge Data
Date of Admission: 09/10/24
Date of Discharge: 09/14/24
-
Pending Results: No
Hospital Course
Discharging Physician : Dr Jaden Mendoza
Disposition : To home
Primary care physician : Unknown
Principal Discharge diagnosis :
Methamphetamine overdose
Ventilatory dependent respiratory failure
Toxic metabolic encephalopathy
Fever from methamphetamine overdose
Constipation
Laxative induced diarrhea
Chronic Discharge diagnosis :
History of substance abuse
Hospital Course :
Patient is a 59-year-old male who was sent from [facility] after patient was noted to agitated. Apparently patient was witnessed to take 1.5 g of methamphetamine by one of the inmates?. EMS was called and patient was
brought in to ER for further evaluation where patient slowly started getting sedated. Patient was intubated for airway protection and was started on Precedex drip. Patient was admitted to ICU for further monitoring. Urine drug screen was positive
for methamphetamine/methadone. After improvement in patient mentation patient was able to be taken off of ventilator. Patient PDMP reviewed and was on buprenorphine/naloxone 8/2 mg 3 patches daily and thus patient was provided 24 mg of Subutex
therapy. [facility] and was advised to continue follow-up postdischarge.
Patient was also spiking high-grade fever on day 1 and initially was thought to be related to possible left arm cellulitis versus sepsis from unknown source, patient was started on burst of antibiotic. Workup with influenza/COVID/UA/blood culture
were negative. Fever was likely related to increased sympathetic drive with meth overdose. Patient after resolution of fever was taken off of antibiotics and monitored in the hospital.
Patient was also complaining of significant constipation patient and requiring oral laxative and suppository with which patient developed diarrhea.
Post cephalization patient was discharged home
Important imaging findings :
None
Procedure findings :
None
Discharge Plan
-
Patient Disposition: Home (Routine Discharge)
Discharge Diagnosis/Procedures: Methamphetamine overdose,
Condition: Fair
Diet: Regular
Activity: As tolerated
Driving Restrictions: As prior to admission
Bathing Restrictions: OK to Shower
Prescriptions:
No Action
No Current Medications
0
Discharge Orders:
Discharge Patient (As Directed); Ordered 09/14/24
Ordered By: Jaden Mendoza
Discharge Date and Time
Discharge Date/Time: 09/14/24 11:50
Print Language: GUYANESE
== END 2024-09-14 11:50 | disposition home or self-care (01) | DRG 917 ==
LOC: 4 WEST ACU 15:01
PROVIDERS: Nurse Practitioner Primary Care; Physician Assistant Medical; ADMITTING PHYSICIAN Internal Medicine; ATTENDING PHYSICIAN Hospitalist; EMERGENCY PHYSICIAN Emergency Medicine; OTHER PHYSICIAN Internal Medicine
PROC: 0BH17EZ Insertion of Endotracheal Airway into Trachea, Via Natural or Artificial Opening (ICD-10-PCS; 2024-09-10)
PROC: 5A1935Z Respiratory Ventilation, Less than 24 Consecutive Hours (ICD-10-PCS; 2024-09-10)
DX: T43.651A Poisoning by methamphetamines accidental (unintentional), initial encounter (principal); G92.8 Other toxic encephalopathy; J96.01 Acute respiratory failure with hypoxia; K59.00 Constipation, unspecified; Z11.52 Encounter for screening for COVID-19; G25.3 Myoclonus; I16.0 Hypertensive urgency; R50.9 Fever, unspecified; D72.829 Elevated white blood cell count, unspecified
CPT/HCPCS: 31500; 36600; 70450; 71045; 74018; 80048; 80053; 80143; 80179; 80306; 80307; 81003; 81015; 82077; 82550; 82805; 83735; 84478; 85025; 85027; 85610; 85730; 87040; 87070; 87086; 87502; 87811; 92610; 93005; 94002; 94003; 96361; 96374; 96375; 97162; 97165; 99291